=== PATIENT | female | born 1965 | race Hispanic/Latino ===

== ENCOUNTER 2022-08-17 15:34 | Emergency (ER) | payer OTHER ==
[~2022-08-17] VITALS: Ht 154.9 cm; Wt 72.6 kg
[2022-08-17 15:38] VITALS: BP 157/102
[2022-08-17 16:16] LABS: APPEARANCE,URINE CLEAR (CLEAR); BILIRUBIN,URINE NEGATIVE (NEGATIVE); COLOR,URINE YELLOW (YELLOW); GLUCOSE, URINE (UA) NEGATIVE (NEGATIVE); KETONES,URINE NEGATIVE (NEGATIVE); LEUKOCYTE ESTERASE ,URINE NEGATIVE Leu/uL (NEGATIVE); NITRATE,URINE NEGATIVE (NEGATIVE); OCCULT BLOOD,URINE NEGATIVE (NEGATIVE); PROTEIN,URINE 10 mg/dL (NEGATIVE); UROBILINOGEN,URINE 0.2 mg/dL (0.2-1.0)
[2022-08-17 16:24] LABS: AMPHET/METH SCREEN,URINE POSITIVE (NEGATIVE); BARBITURATE SCREEN, URINE NEGATIVE (NEGATIVE); BENZODIAZEPINES SCREEN,URINE NEGATIVE (NEGATIVE); CANNABINOID SCREEN,URINE NEGATIVE (NEGATIVE); COCAINE SCREEN,URINE NEGATIVE (NEGATIVE); OPIATE SCREEN,URINE POSITIVE (NEGATIVE); PHENCYCLIDINE SCREEN,URINE NEGATIVE (NEGATIVE)
[2022-08-17 16:26] LABS: BASOPHILS % (AUTO) 0.6 % (0.0-5.0); EOSINOPHILS % (AUTO) 0.1 % (0.0-8.0); HEMATOCRIT 42.7 % (36-48); MEAN CORPUSCULAR HEMOGLOBIN 28.1 pg (27.0-33.0); MEAN CORPUSCULAR HGB CONC 32.3 g/dL (32.0-36.0); NEUTROPHILS % (AUTO) 67.9 % (40.0-77.0); PLATELET COUNT (AUTO) 379 K/uL (130-400); RED BLOOD CELL COUNT(AUTO) 4.91 MIL/uL (4.00-5.50); RED CELL DISTRIBUTION WIDTH 13.1 % (11.0-15.5); WHITE BLOOD COUNT (AUTO) 10.1 K/uL (4.8-10.8)
[2022-08-17 16:26] LABS: MUCUS,URINE RARE LPF (None Seen); RBC,URINE 0-1 /HPF (0-1); WBC,URINE 0-1 /HPF (0-1)
[2022-08-17] MEDS ORDERED: 0.9%NACL 1000ML 1,000 ML IV SCH (16:30)
[2022-08-17] MEDS: LORAZEPAM 2 MG/ML 1 ML VIAL IVP ONE ×2 (16:35→16:38)
[2022-08-17 16:37] LABS: CARBON DIOXIDE 28 mmol/L (21-32); CHLORIDE 101 mmol/L (101-111); CREATININE 0.8 mg/dL (0.5-1.5); GLOMERULAR FILTR. RATE CALC 79 mL/min (>60); GLUCOSE,RANDOM 101 mg/dL (70-105); POTASSIUM 4.1 mmol/L (3.5-5.1); SODIUM SERUM 139 mmol/L (136-145); UREA NITROGEN, BLOOD 13 mg/dL (7-18)
[2022-08-17 16:41] LABS: ALANINE AMINOTRANSFERASE 25 U/L (12-78); ALBUMIN 4.1 g/dL (3.5-5.0); ASPARTATE AMINOTRANSFERASE 18 U/L (10-37); CREATINE KINASE, TOTAL 118 U/L (21-232); SALICYLATE 3.2 mg/dL (2.8-20.0); TOTAL PROTEIN, SERUM 7.6 g/dL (6.0-8.3)
[2022-08-17 16:42] LABS: ACETAMINOPHEN < 1 mcg/mL (10-30); ALCOHOL, BLOOD < 3 mg/dL (0-10)
[2022-08-17] MEDS ORDERED: LORAZEPAM 2 MG/ML 1 ML VIAL IVP ONE (17:00)
== END 2022-08-17 17:57 | disposition home or self-care (01) ==
LOC: EDH 15:34
DX: F41.9 Anxiety disorder, unspecified (principal); F43.20 Adjustment disorder, unspecified; I10 Essential (primary) hypertension; E11.9 Type 2 diabetes mellitus without complications; Z90.710 Acquired absence of both cervix and uterus
CPT/HCPCS: 99284; 96374; 82550; 80053; 80305; 85025; 81001; 36415; 93005; G0481; J2060

== ENCOUNTER 2022-10-12 16:06 | Emergency (ER) | payer MEDICAID, OTHER ==
[~2022-10-12] VITALS: Ht 162.6 cm; Wt 68.0 kg
[2022-10-12 16:38] LABS: BASOPHILS % (AUTO) 0.9 % (0.0-5.0); EOSINOPHILS % (AUTO) 3.4 % (0.0-8.0); HEMATOCRIT 45.7 % (36-48); LYMPHOCYTES % (AUTO) 44.1 % (21.0-51.0); MEAN CORPUSCULAR HEMOGLOBIN 28.3 pg (27.0-33.0); MEAN CORPUSCULAR HGB CONC 31.7 g/dL (32.0-36.0); MEAN CORPUSCULAR VOLUME 89.3 fL (79-99); NEUTROPHILS % (AUTO) 42.2 % (40.0-77.0); PLATELET COUNT (AUTO) 356 K/uL (130-400); RED BLOOD CELL COUNT(AUTO) 5.12 MIL/uL (4.00-5.50); RED CELL DISTRIBUTION WIDTH 13.3 % (11.0-15.5); WHITE BLOOD COUNT (AUTO) 5.5 K/uL (4.8-10.8)
[2022-10-12 16:48] LABS: CREATININE 0.7 mg/dL (0.5-1.5); POTASSIUM 3.9 mmol/L (3.5-5.1)
[2022-10-12 16:53] LABS: ALBUMIN 3.7 g/dL (3.5-5.0)
[2022-10-12 17:33] LABS: APPEARANCE,URINE CLEAR (CLEAR); BILIRUBIN,URINE NEGATIVE (NEGATIVE); COLOR,URINE YELLOW (YELLOW); GLUCOSE, URINE (UA) NEGATIVE (NEGATIVE); KETONES,URINE NEGATIVE (NEGATIVE); LEUKOCYTE ESTERASE ,URINE NEGATIVE Leu/uL (NEGATIVE); NITRATE,URINE NEGATIVE (NEGATIVE); OCCULT BLOOD,URINE NEGATIVE (NEGATIVE); PROTEIN,URINE NEGATIVE (NEGATIVE); UROBILINOGEN,URINE 0.2 mg/dL (0.2-1.0)
[2022-10-12 18:49] VITALS: BP 132/95
== END 2022-10-12 18:56 | disposition home or self-care (01) ==
LOC: EDH 16:06
DX: K29.70 Gastritis, unspecified, without bleeding (principal); I10 Essential (primary) hypertension; E11.9 Type 2 diabetes mellitus without complications; Z90.710 Acquired absence of both cervix and uterus
CPT/HCPCS: 36415; 80053; 81003; 85025

== ENCOUNTER 2024-06-28 10:13 | Emergency (ER) | payer MEDICAID ==
[~2024-06-28] VITALS: Ht 154.9 cm; Wt 63.5 kg
[2024-06-28] MEDS ORDERED: PHARMACY COMMUNICATION MISC STA (10:22)
[2024-06-28 10:58] VITALS: BP 168/100; PULSE 72; RESP 16; TEMP 97.8; O2SAT 98
[2024-06-28 11:12] LABS: RAPID GROUP A STREP negative (NEGATIVE)
[2024-06-28 11:22] LABS: SARS-CoV-2, RNA, NAAT NEGATIVE SARS CoV-2 (NEGATIVE)
[2024-06-28 11:23] LABS: INFLUENZA TYPE A Negative For Type A (NEGATIVE); INFLUENZA TYPE B Negative For Type B (NEGATIVE)
[2024-06-28] MEDS: MAG/AL/SIMETH 30 ML+LIDO2% VISC+DIPHEN 75MG 30ML PO PRN (11:29)
[2024-06-28] MEDS: LIDOCAINE HCL 2% VISCOUS 15 ML UDCUP ONE (11:30)
[2024-06-28] MEDS: DiphenhydrAMINE HCL 25 MG/10 ML ELIXIR UDCUP ONE (11:30)
[2024-06-28] MEDS: COMPOUND PO MISCELLANEOUS 1 EACH MISC MISC PRN (11:30)
[2024-06-28] MEDS: MAG/ALUM/SIMETH 30 ML UDCUP ONE (11:30)
--- NOTE | 2024-06-28 11:42 | ERN ---
ED Note History of Present Illness Stated Complaint: SORE THROAT, SORE IN MOUTH Chief Complaint: Sore Throat Time Seen by MD: 10:14 Time Seen by Midlevel: 10:18 Dictation: 58-year-old coming in with complaints of mouth sores and sore throat for two wee ks. Patient states two weeks ago she was diagnosed with COVID PCP's sent to her prescription. Patient is also taking daily prednisone for her COPD. Patient admits to vaping daily. Patient denies having any recent weight loss, fever, chills, body aches. Denies any other complaints. Allergies: Coded Allergies: No Known Allergies (Unverified Allergy, Unknown, 08/17/22) Home Meds Active Scripts Amoxicillin/Potassium Clav (Amox Tr-K Clv 875-125 mg Tab) 875 Mg-125 Mg Tablet, 1 EACH PO BID for 5 Days, #10 TAB 0 Refills Prov:JÚNIOR GRIDER CUTTER IN 06/28/24 Past Medical History Past Medical History: Diabetes-Type II, High Cholesterol, Hypertension, Other Additional Past Medical Hx: RH, BACK PAIN, HX OF JAW [place] Surgical History: Hysterectomy Social History: Lives with family Review of System Dictation Constitutional: Negative for fever,chills, and weight loss Eyes: Negative for injury, pain,redness, and discharge ENT: Complaining of sore throat and sores to mouth Cardiovascular: Negative for chest pain, palpitations, and edema Respiratory: Negative for shortness of breath, cough, and wheezing, Abdomen/GI: Negative for abdominal pain, nausea, vomiting, diarrhea, and constipation Back: Negative for injury and pain : Negative for injury, bleeding and discharge MS/Extremity: Negative for injury and deformity Skin: Negative for rash, and discoloration Neuro: Negative for headache, weakness, numbness, tingling, and seizure Psych: Negative for suicide ideation, homicidal ideation, and hallucinations Review of Systems: was completed Initial Vital Sign VS Vital Signs Date Time Temp Pulse Resp B/P (MAP) Pulse Ox O2 Delivery O2 Flow Rate FiO2 06/28/24 10:14 97.9 67 16 168/100 99 Room Air 0 06/28/24 10:58 21 Physical Exam Dictation General: awake, alert, NAD Head/Face: Normocephalic, atraumatic Eyes: PERRL, EOMI, vision at baseline ENT: oral cavity clear, TMs clear, no signs of infection, there is a mild lesion on the left side of the inner cheek Neck: Trachea midline, supple, no nuchal rigidity Cardiovascular: RRR, normal S1/S2, No MRGs, no JVD Respiratory: CTAB, no respiratory distress, No rales or wheezes Abdomen: Soft, non-tender, non-distended, normal bowel sounds, no guarding or rebound. Skin: Warm, dry, normal turgor, no rash MS/Extremity: Pulses equal, no cyanosis, neurovascular intact, FROM Neuro: COAx4, GCS 15, strength 5/5, CN 2-12 intact, normal cerebellar exam, normal gait, Psych: Normal behavior, mood, and affect normal Results (Laboratory/Radiology) Laboratory/Radiology Laboratory Tests Test 06/28/24 10:55 Influenza Type A Antigen Negative For Type A Influenza Type B Antigen Negative For Type B SARS-CoV-2, RNA, NAAT NEGATIVE SARS CoV-2 Group A Streptococcus Rapid negative (NEGATIVE) Labs Reviewed?: Yes ED Course ED Course Orders Procedure Category Date Status Time Covid Rna Naat LAB 06/28/24 Complete 10:22 Influenza Type A & B, LAB 06/28/24 Complete Rapid 10:22 Rapid (Group A Strep) LAB 06/28/24 Complete 10:22 Pharmacy PHA 06/28/24 Complete Communication 10:22 Mag/Alum/Simeth 30ml PHA 06/28/24 Complete (Maalox Plus 30ml) 11:00 Compound Po Misc PHA 06/28/24 Complete (Compound Po Misc) 11:00 Mag/Alum/Simeth 30ml PHA 06/28/24 Complete (Maalox Plus 30ml) 11:27 Diphenhydramine Hcl PHA 06/28/24 Complete (Benadryl Elixir) 11:27 Lidocaine Hcl 2% PHA 06/28/24 Complete Viscous (Lidocaine Hcl 11:28 Ketorolac PHA 06/28/24 Complete Tromethamine 15mg/Ml 11:45 Current Medications Medications (Trade) Dose Ordered Sig/Matt Route PRN Reason Start Time Stop Time Status Last Admin Dose Admin Al Hydroxide/Mg Hydroxide (MAALox PLUS 30ML) 30 ml STK-MED ONCE .ROUTE 06/28/24 11:27 06/28/24 11:28 DC Al Hydroxide/Mg Hydroxide/ Lidocaine HCl/ Diphenhydramine HCl TAKE (5-10)ML SWISH ... Q6H PRN PO HEARTBURN 06/28/24 11:00 06/28/24 12:07 DC 06/28/24 11:29 Diphenhydramine HCl (BENAdryl ELIXIR) 25 mg STK-MED ONCE .ROUTE 06/28/24 11:27 06/28/24 11:28 DC Ketorolac Tromethamine (toRADol) 15 mg ONCE STAT IM 06/28/24 11:45 06/28/24 11:49 DC 06/28/24 12:02 Lidocaine HCl (Lidocaine HCl 2% Viscous) 15 ml STK-MED ONCE .ROUTE 06/28/24 11:28 06/28/24 11:28 DC Pharmacy Profile Note (Pharmacy Communication) 1 each ONCE STAT MISC 06/28/24 10:22 06/28/24 10:32 DC Vital Signs Date Time Temp Pulse Resp B/P (MAP) Pulse Ox O2 Delivery O2 Flow Rate FiO2 06/28/24 10:58 97.9 72 16 168/100 98 Room Air* 0 21 06/28/24 10:14 97.9 67 16 168/100 99 Room Air 0 Medical Decision Making MDM MDM: 58-year-old coming in with complaints of mouth sores and sore throat for two weeks. Patient states two weeks ago she was diagnosed with COVID PCP's sent to her prescription. Patient is also taking daily prednisone for her COPD. Patient admits to vaping daily. Patient denies having any recent weight loss, fever, chills, body aches. Denies any other complaints. On physical exam there is evidence of periodontal disease, erythema to the pharynx area, no discharge or exudate and small lesion to the left side of the inner cheek. Patient's serologies negative for COVID, flu, strep. Patient received pain management h ere in the ER, Toradol and magic mouthwash. We will discharge patient with magic mouthwash and a prescription for Augmentin. Patient's sister came up to the nurse's station asked when somebody was going to see the patient, I stated that I had already seen the patient that it was the nurse practitioner, sister stated so she is not going to see a real doctor. Dr. Angeles, ER MD, went to assess patient and spoke to them about findings and follow up. Differential diagnosis: Strep throat, stomatitis, canker sore Rationale: Tests considered and ordered secondary to shared decision making include: Previous outside records reviewed: Old ER visits. Risk of complication and/or morbidity or mortality of patient management: None Medications-Per medication reconciliation Need for hospitalization: Patient does not meet criteria for hospitalization. Need for emergency major/minor surgery: No There are no social concerns with this patient. Prescription drug management Prescriptions will include symptomatic care Patient's prior external medical records from other ER visits were reviewed by me as indicated. Prior testing and results from previous visits were reviewed. Prior tests were taken into account with medical decision making and resource utilization, independent historian/historians were used to obtain complete medical history. I independently interpreted the test that were performed, results were reviewed by me and considered findings on radiology if ordered. Medical management and examination interpretation discussions were had by me with other qualified healthcare professionals as indicated for the patient's care. I PERFORMED A SUBSTANTIVE PORTION OF THE VISIT. I HAVE REVIEWED AND PERSONALLY MADE AND APPROVE THE MANAGEMENT PLAN THAT IS DOCUMENTED IN THE NOTE BY MYSELF OR THE AP P. I ACKNOWLEDGE FULL RESPONSIBILITY FOR THE PATIENT'S MANAGEMENT PLAN. DX & DISP Disposition: Discharge Departure Impression: Primary Impression: Pharyngitis Additional Impression: Periodontal disease Condition: Stable Scripts Amoxicillin/Potassium Clav (Amox Tr-K Clv 875-125 mg Tab) 875 Mg-125 Mg Tablet 1 EACH PO BID for 5 Days, #10 TAB 0 Refills Prov: JÚNIOR GRIDER NP 06/28/24 Additional Instructions: Follow up with your PCP in 1-2 days. Stop vaping. Referrals: BAIRON CRAIN MD (PCP) Time of Disposition: 11:49 I have reviewed the case, and I agree with, Diagnosis and Plan I performed this substantive portion of this visit. I have reviewed and personally made and approve the management plan that is documented in the note by myself or the BRENDA. I acknowledge full responsibility for the patient's management plan. JÚNIOR GRIDER NP Jun 28, 2024 11:42 LIANNA ANGELES MD Jun 29, 2024 09:47
[2024-06-28] MEDS ORDERED: AMOX1TAB16 PO (11:50)
[2024-06-28] MEDS: ketOROlac 15MG/ML VIAL (15MG/ML) IM STA (12:02)
== END 2024-06-28 12:07 | disposition home or self-care (01) ==
LOC: EDH 10:13
DX: J02.9 Acute pharyngitis, unspecified (principal); K05.6 Periodontal disease, unspecified; E11.9 Type 2 diabetes mellitus without complications; E78.00 Pure hypercholesterolemia, unspecified; I10 Essential (primary) hypertension; Z90.710 Acquired absence of both cervix and uterus; Z20.822 Contact with and (suspected) exposure to COVID-19
CPT/HCPCS: 99283; 87635; 87880; 87804 ×2; 96372; J1885